=== PATIENT | female | born 1995 ===

== ENCOUNTER 2021-04-22 13:12 | Outpatient (CLI) | payer MEDICAID ==
[2021-04-22] MEDS ORDERED: LACTATED RINGERS 1,000 ML IV ONE (13:27)
[2021-04-22 13:37] VITALS: BP 117/73
[2021-04-22 14:32] LABS: Bilirubin,Urine NEG (Negative); Blood,Urine NEG (Negative); Color,Urine Amber (Yellow); Mucus,Urine 2+ /HPF
== END 2021-04-22 16:11 | disposition home or self-care (01) ==
LOC: TRG 13:12 → APU 13:14 → TRG 16:11
PROVIDERS: ATTEND Obstetrics & Gynecology
DX: Z34.93 Encounter for supervision of normal pregnancy, unspecified, third trimester (principal); Z3A.32 32 weeks gestation of pregnancy
CPT/HCPCS: 59025; 81001